=== PATIENT | female | born 1970 | race Caucasian/White ===

== ENCOUNTER 2023-11-10 19:12 | Emergency (ER) | payer OTHER ==
[~2023-11-10] VITALS: Ht 165.1 cm; Wt 87.3 kg
[~2023-11-10 19:12] MED LIST: AMITRIPTYLINE H50 MG PO; AMITRIPTYLINE100 MG PO; ANUSOL-HC25 MG RC; ATIVAN0.5 MG PO; BERBERINE PO; CALCIO DEL MAR500 MG PO; CEPHALEXIN500 MG PO; CITRACAL + D C1 EACH PO; FLAGYL500 MG PO; FOLIC ACID1 MG PO; HYDROCHLOROTHIA50 MG PO; KEFLEX500 MG PO; MECLIZINE HCL25 MG PO; MELOXICAM15 MG PO; METFORMIN HCL500 M1 PO; METHOTREXATE2.5 MG PO; METOPROLOL SUC100 MG PO; METOPROLOL SUCC50 MG PO; MOTRIN IB200 MG PO; NORCO 7.5-3251 EACH PO; PHENERGAN25 MG/1 ML PO; POTASSIUM CHLO20 ME1 PO; PROBIOTIC1 EAC1 PO; PROMETHAZINE HC25 M1 PO; REGLAN10 MG PO; SIMVASTATIN20 MG PO; SULFASALAZINE500 MG PO; TERBINAFINE HC250 MG PO; TOPROL XL100 MG PO; TRANSDERM-SCOP1 EA TD; VITAMIN D325 MCG PO; WOMEN'S 50 PLU1 EACH PO; ZOFRAN ODT8 MG PO; [UNRECOGNIZED DRUG - OTHER] PO
[2023-11-10] MEDS ORDERED: TRANEXAMIC ACID 1,000 MG/10 ML AMP TOP ONE (19:45)
[2023-11-10] MEDS ORDERED: TRANEXAMIC ACID IN NACL,ISO-OS 1,000 MG/100 ML PIGGYBACK IV ONE (20:00)
[2023-11-10 20:10] LABS: BASOPHILS 0.8 % (0-2); HEMATOCRIT 42.4 % (35.0-50.0); MCH 30.7 (27-36); MCHC 33.1 g/dl (30-36); MCV 92.9 fl (81-99); MONOCYTES 7.4 % (0-12); NEUTROPHILS 50.8 % (39-80); PLATELET COUNT 266 K/uL (140-440); RBC 4.57 M/ul (4.3-5.7); RDW 14.5 (10.5-15.0)
[2023-11-10 20:27] LABS: ALBUMIN 3.7 g/dL (3.4-5.0); ALBUMIN/GLOBULIN RATIO 0.97 (1.1-2.4); ANION GAP 15.2 (7-21); BILIRUBIN, TOTAL 0.3 ng/dL (0.2-1.0); BUN/CREATININE RATIO 24.19 (6.0-28.6); CALCIUM 8.8 mg/dL (8.5-10.1); CREATININE, SERUM 0.62 mg/dL (0.55-1.02); POTASSIUM 4.2 mmol/L (3.5-5.1); PROTEIN, TOTAL 7.5 g/dL (6.4-8.2)
[2023-11-10 20:29] LABS: PROTIME 12.8 Sec (11.2-14.2)
[2023-11-10 20:31] LABS: PARTIAL THROMBOPLASTIN TIME 30.2 Sec (22.9-41.3)
[2023-11-10 21:47] VITALS: BP 162/92
== END 2023-11-10 21:47 | disposition home or self-care (01) ==
LOC: ED 19:12
PROVIDERS: Internal Medicine
DX: K91.840 Postprocedural hemorrhage of a digestive system organ or structure following a digestive system procedure (principal); Y84.8 Other medical procedures as the cause of abnormal reaction of the patient, or of later complication, without mention of misadventure at the time of the procedure; I10 Essential (primary) hypertension; E11.9 Type 2 diabetes mellitus without complications; F17.200 Nicotine dependence, unspecified, uncomplicated; Z88.5 Allergy status to narcotic agent; Z88.8 Allergy status to other drugs, medicaments and biological substances; Z79.899 Other long term (current) drug therapy
CPT/HCPCS: 36415; 80053; 85025; 85610; 85730; 96374; 99283-25